=== PATIENT | male | born 1950 | race Caucasian/White ===

== ENCOUNTER 2017-06-20 08:23 | Day surgery (SDC) | payer MEDICARE, OTHER ==
--- NOTE | 2017-06-13 10:22 | HISTORY AND PHYSICAL E ---
History and Physical NAME: AMBER RHOADES : 1950 AGE: 66Y ADMITTED: 06/20/2017 ROOM: CHIEF COMPLAINT: Colon screening. HISTORY OF PRESENT ILLNESS: The patient is known to me. In 2000, he underwent colonoscopy. He does have strong family history of colorectal polyps. The patient did have prominent rectosigmoid mucosa, polypoid lesion in the duodenal bulb. The patient's colon shows the following: Prominent mucosa in rectosigmoid. The patient's stomach shows fluid retention, mild gastritis. The patient did have prominent folds in the duodenum. The patient has biopsy, H. pylori negative. He did have mild duodenitis. His colon was done and shows no evidence of malignancy. REVIEW OF SYSTEMS: ENDOCRINE: Diabetes, insulin dependent. GASTROINTESTINAL: Colon screening. ONCOLOGY/HEMATOLOGY: Negative. RESPIRATORY: Negative. FAMILY HISTORY: His father had heart disease. His mom had cancer of the lung. PHYSICAL EXAMINATION: VITAL SIGNS: Patient's blood pressure is 100/60, weight 227, pulse 80, respirations 18, temp is 98. HEAD, EYES, EARS, NOSE, AND THROAT: Normal. ABDOMEN: Soft. NEUROLOGIC: Negative. CONCLUSION: Colon screening. MEDICATIONS: 1. Janumet. 2. Lyrica. 3. Novolog. ALLERGIES: No known allergies. CONCLUSION: 1. Diabetes. 2. Colon screening. PLAN: Colon exam scheduled for the next week or two. DICTATING PHYSICIAN: PATRICIA HOLLEY M.D. [id number] PHY#: [id number] ID: [id number] JOB#: [id number] ACCT: [id number] cc:PATRICIA HOLLEY M.D. >
[~2017-06-20 08:23] MED LIST: EPINEPHRINE INJ 1 MG/10 ML DISP.SYRIN ONE; FENTANYL CITRATE INJ/PF 100 MCG/2 ML AMPUL ONE; FLUMAZENIL INJ 0.5 MG/5 ML VIAL ONE; GLUCAGON,HUMAN RECOMB 1 MG INJ ONE; GLYCOPYRROLATE INJ 0.4 MG/2 ML VIAL ONE; LIDOCAINE 2% JELLY 30 ML TUBE ONE; NALOXONE HCL INJ/PF 0.4 MG/1 ML SDV ONE; ONDANSETRON HCL INJ/PF 4 MG/2 ML SDV ONE
[2017-06-20] MEDS: MIDAZOLAM 2 MG/2 ML INJ ONE ×3 (09:29→09:43)
[2017-06-20] MEDS: FENTANYL CITRATE INJ/PF 100 MCG/2 ML AMPUL ONE ×3 (09:31→09:40)
[2017-06-20 10:47] LABS: ABSOLUTE BASOPHILS # (AUTO) 0.1 10^3/uL (0.0-0.2); ABSOLUTE EOSINOPHILS # (AUTO) 0.1 10^3/uL (0.0-0.6); ABSOLUTE LYMPHOCYTES (AUTO) 1.7 10^3/uL (0.5-4.7); ABSOLUTE MONOCYTES (AUTO) 0.7 10^3/uL (0.1-1.4); ABSOLUTE NEUT (AUTO) 6.7 10^3/uL (1.7-8.2); BASOPHILS % (AUTO) 0.7 % (0-2); EOSINOPHILS % (AUTO) 1.3 % (0-6); HEMATOCRIT 46.5 % (37.9-51.0); HGB HCT DIFFERENCE 1.5; LYMPHOCYTES % (AUTO) 17.7 % (13-45); MEAN CORPUSCULAR HEMOGLOBIN 28.6 pg (27.0-33.4); MEAN CORPUSCULAR HGB CONC 34.5 g/dL (32.0-36.0); MEAN CORPUSCULAR VOLUME 83 fl (80-97); RED BLOOD COUNT 5.62 10^6/uL (4.35-5.55); RED CELL DISTRIBUTION WIDTH 15.5 % (11.5-14.0); SEGMENTED NEUTROPHILS % (AUTO) 72.3 % (42-78); WHITE BLOOD COUNT 9.3 10^3/uL (4.0-10.5)
[2017-06-20 11:01] LABS: ALANINE AMINOTRANSFERASE 32 U/L (21-72); ALBUMIN 3.9 g/dL (3.5-5.0); ALKALINE PHOSPHATASE 67 U/L (38-126); ANION GAP 10 (5-19); ASPARTATE AMINO TRANSFERASE 17 U/L (17-59); BILIRUBIN,DIRECT 0.3 mg/dL (0.0-0.4); BILIRUBIN,TOTAL 1.1 mg/dL (0.2-1.3); BLOOD UREA NITROGEN 16 mg/dL (7-20); CALCIUM 9.1 mg/dL (8.4-10.2); CARBON DIOXIDE 24 mmol/L (22-30); CHLORIDE 101 mmol/L (98-107); CREATININE RESULT 0.88 mg/dL (0.52-1.25); GLUCOSE 181 mg/dL (75-110); SODIUM 134.9 mmol/L (137-145); TOTAL PROTEIN 6.6 g/dL (6.3-8.2)
[2017-06-20 11:13] VITALS: BP 115/66
[2017-06-20 11:31] LABS: CARCINOEMBRYONIC ANTIGEN 2.2 ng/mL (<3.0)
--- NOTE | 2017-06-20 12:08 | DISCHARGE SUMMARY E ---
Discharge Summary NAME: AMBER RHOADES : 1950 AGE: 66Y ADMITTED: 06/20/2017 DISCHARGED: 06/20/2017 FINAL DIAGNOSES: 1. Sigmoid and descending colon diverticulosis. 2. External hemorrhoids. 3. Sessile 1-cm polyp, cecum. PROCEDURE: Colonoscopy and sessile polyp injected and resected polypectomy. No tissue available. HISTORY: The patient is known to have hypertension and diabetes. PLAN: Patient to be discharged on clear liquids today, full liquids tomorrow, soft low-residue diet for a week and insulin sliding scale. Patient is to continue to hold the Janumet. We will obtain lab studies again. Awaiting lab and consider follow-up colonoscopy 6 months for further evaluation of sessile polyp in the cecum. DICTATING PHYSICIAN: PATRICIA HOLLEY M.D. [id number] PHY#: [id number] ID: [id number] JOB#: [id number] ACCT: [id number] cc:MARTÍN GLASER M.D., MAHMOUD M.D. >
--- NOTE | 2017-06-20 12:09 | OPERATIVE REPORT E ---
Operative Report NAME: AMBER RHOADES : 1950 AGE: 66Y DATE OF SURGERY: 06/20/2017 ROOM: PREOPERATIVE DIAGNOSIS: Colon screening. POSTOPERATIVE DIAGNOSES: 1. External hemorrhoids, mild. 2. Sigmoid descending diverticulosis, moderate, sessile 1 cm at the junction of the cecum and proximal ascending. PROCEDURE: Colonoscopy. SURGEON: PATRICIA HOLLEY M.D. TISSUE REMOVED OR ALTERED: Polyp in the cecum, ascending junction injected, resected. Looks like villous adenoma polyp. Awaiting biopsy. DESCRIPTION: Rectal exam: External hemorrhoids. Sigmoid descending colon diverticulosis. Transverse colon normal. Ascending colon normal. Cecum: Ascending junction shows a sessile 1 cm polyp. This was injected with saline and resected. The site of the resection shows no sign of bleeding. Small cauterization at the site of resection was applied for the removal of the rest of the polyp and control small amount of heme. CONCLUSION: Diverticulosis sigmoid descending and a 1 cm sessile polyp at the junction of the cecum proximal ascending, resected with no difficulties. PLAN: Baseline CBC, CEA. Hold aspirin, nonsteroidal for a week. Full liquid diet today, then soft, low-residue diet for a week. Will start with clear liquid today, then full liquid tomorrow, then 1 week soft, low-residue diet. Awaiting lab studies. No tissue available. Consider followup colonoscopy after 6 months for further evaluation of the cecum and to check the site of the polyp. DICTATING PHYSICIAN: PATRICIA HOLLEY M.D. [id number] PHY#: [id number] ID: [id number] JOB#: [id number] ACCT: [id number] cc:MARTÍN GLASER M.D., MAHMOUD M.D. >
== END 2017-06-20 11:20 | disposition home or self-care (01) ==
LOC: END 08:23
PROVIDERS: ATTEND Specialist
PROC: 0DBH8ZX Excision of Cecum, Via Natural or Artificial Opening Endoscopic, Diagnostic (ICD-10-PCS; principal; 2017-06-20 09:00)
DX: Z12.11 Encounter for screening for malignant neoplasm of colon (principal); K57.30 Diverticulosis of large intestine without perforation or abscess without bleeding; D12.0 Benign neoplasm of cecum; K64.4 Residual hemorrhoidal skin tags; R97.0 Elevated carcinoembryonic antigen [CEA]; I10 Essential (primary) hypertension; E11.9 Type 2 diabetes mellitus without complications; Z79.4 Long term (current) use of insulin; Z79.899 Other long term (current) drug therapy; Z79.84 Long term (current) use of oral hypoglycemic drugs
CPT/HCPCS: 45385; 45381; 36415; 82962; 82378; 85025; 80053; J2250; J3010; J1610; J2405; J0171; J2310; J3490

== ENCOUNTER 2018-01-14 08:02 | Day surgery (SDC) | payer MEDICARE ==
[~2018-01-14 08:02] MED LIST changes: +DIPHENHYDRAMINE HCL 50 MG/ML VIAL ONE; -FENTANYL CITRATE INJ/PF 100 MCG/2 ML AMPUL ONE; -GLYCOPYRROLATE INJ 0.4 MG/2 ML VIAL ONE; -LIDOCAINE 2% JELLY 30 ML TUBE ONE
[2018-01-14] MEDS: MIDAZOLAM 2 MG/2 ML INJ ONE ×3 (08:36→08:46)
[2018-01-14] MEDS: FENTANYL CITRATE INJ/PF 100 MCG/2 ML AMPUL ONE ×3 (08:38→08:44)
--- NOTE | 2018-01-14 09:41 | Operative Report ---
Operative Report DATE OF SURGERY: 01/14/18 Operative Report: The risks, benefits and alternatives of the procedure including risks of bleeding, perforation requiring surgery I explained to the patient in detail and informed consent is obtained. Patient is taken back to the endoscopy suite and placed in the left, lateral decubital position. Timeout was called. Conscious sedation medications are provided. A rectal examination is done which did not reveal any masses, tears or fissures. An Olympus videoscope was inserted into the patient's rectum. The scope was then carefully advanced all the way to the cecum. The cecum was identified by the usual anatomical landmarks including the ileocecal valve as well as the appendiceal office. Photodocumentation was obtained. The scope was then sequentially pulled back via the various segments of the colon including the ascending colon, hepatic flexure, transverse colon, splenic flexure, descending colon and finally in to the rectosigmoid portions of the colon. Retroflexion maneuvers performed. PREOPERATIVE DIAGNOSIS: Personal history of polyps POSTOPERATIVE DIAGNOSIS: Polyp noted at the hepatic flexure removed via snare polypectomy and retrieved. Cecal polyp removed via biopsy. Diverticulosis OPERATION: Colonoscopy with snare polypectomy. Colonoscopy with biopsy SURGEON: TOI TREVINO ANESTHESIA: Moderate Sedation - 5 mg of Versed, 100 mcg of fentanyl. Conscious sedation monitoring time 30 minutes. TISSUE REMOVED OR ALTERED: As noted above. COMPLICATIONS: None. ESTIMATED BLOOD LOSS: None. INTRAOPERATIVE FINDINGS: As noted above. PROCEDURE: Patient tolerated procedure well. No immediate postprocedure complications are noted. Patient discharged in good condition. Discharge date 01/14/2018. Discharge diet: Regular. Discharge activity: Regular. 2-3 week follow-up to discuss findings. Patient is instructed call the office or proceed to the emergency room should there be any further problems or questions. 3-5 year surveillance colonoscopy.
[2018-01-14 10:34] VITALS: BP 120/66
== END 2018-01-14 10:20 | disposition home or self-care (01) ==
LOC: END 08:02
PROVIDERS: ATTEND Internal Medicine Gastroenterology
DX: K57.30 Diverticulosis of large intestine without perforation or abscess without bleeding (principal); D12.0 Benign neoplasm of cecum; K63.5 Polyp of colon; Z86.010 Personal history of colon polyps; R73.03 Prediabetes
CPT/HCPCS: 45380; 45385; 82962; 88305 ×2; J2250; J3010; J0171; J1200; J1610; J2310; J2405; J3490